=== PATIENT | female | born 1975 | race Caucasian/White ===

== ENCOUNTER 2018-06-01 17:58 | Emergency (ER) | payer MEDICARE, MEDICAID ==
[~2018-06-01] VITALS: Ht 157.5 cm; Wt 63.5 kg
[2018-06-01] MEDS: HYDROcodone/APAP 5/325MG 1 TAB TABLET PO ONE (19:03)
[2018-06-01] MEDS: CYCLOBENZAPRINE 10 MG TABLET. PO ONE (19:03)
--- NOTE | 2018-06-01 20:30 | RAD ---
CT lumbar spine, CT thoracic spine without contrast. HISTORY: Back pain, fall on ice Thoracic spine Axial CT images were obtained through the thoracic spine. A fracture is not identified. Visualized portions of the lungs are clear. There is no focal disc protrusion. This spaces are normal in height. IMPRESSION: 1. No fracture noted in the thoracic spine. Lumbar spine Axial CT images were obtained to the lumbar spine. Sagittal and coronal reconstructed images were reviewed. An acute fracture is not identified. The patient had previous laminectomy and fusion in the lower lumbar spine. There are artifacts off the pedicle screws which limit evaluation. There is fusion of the lower 2 lumbar vertebra to the sacrum. Pedicle screws are in good position. There is no abnormal subluxation. There is no focal disc protrusion in the upper lumbar spine. There is transitional anatomy at the thoracolumbar lumbar junction. There appears to be bony fusion at the between the 2 lumbar vertebra but not at the lumbosacral junction. IMPRESSION: 1. Previous lower lumbar fusion. 2. No acute fracture. 3. No abnormal subluxation. PQRS Compliance Statement: One or more of the following individualized dose reduction techniques were utilized for this examination: 1. Automated exposure control 2. Adjustment of the mA and/or kV according to patient size 3. Use of iterative reconstruction technique Electronically signed by: Arturo Daly MD (06/01/2018 8:26 PM) [facility]
--- NOTE | 2018-06-01 20:33 | RAD ---
CT cervical spine without contrast. HISTORY: Fall on ice, neck pain Axial CT images were obtained to the cervical spine. Sagittal and coronal reconstructed images were reviewed. A fracture is not identified. C-spine is in normal alignment. A disc protrusion is not identified. Thyroid is homogeneous. Disc spaces are normal in height. There is minimal facet arthritis. IMPRESSION: 1. No acute fracture noted PQRS Compliance Statement: One or more of the following individualized dose reduction techniques were utilized for this examination: 1. Automated exposure control 2. Adjustment of the mA and/or kV according to patient size 3. Use of iterative reconstruction technique Electronically signed by: Arturo Daly MD (06/01/2018 8:28 PM) [facility]
--- NOTE | 2018-06-01 20:37 | RAD ---
CT maxillofacial without contrast. HISTORY: Fall on ice, right jaw pain and swelling Axial CT images were obtained through the facial bones. A mandible fracture is not identified. There are fluid levels in the maxillary sinuses. Ethmoid and frontal sinuses are clear as are the sphenoid sinuses. An orbital fracture is not identified. A facial fracture is not identified. Nasal bone appears intact. IMPRESSION: 1. Fluid levels in the maxillary sinuses. 2. No facial fracture noted. 3. Mandible appears intact. PQRS Compliance Statement: One or more of the following individualized dose reduction techniques were utilized for this examination: 1. Automated exposure control 2. Adjustment of the mA and/or kV according to patient size 3. Use of iterative reconstruction technique Electronically signed by: Arturo Daly MD (06/01/2018 8:32 PM) [facility]
--- NOTE | 2018-06-01 20:39 | RAD ---
Right elbow 3 views, right humerus 2 views. HISTORY: Fell, pain Right elbow 3 views the right elbow show no evidence of an acute fracture or osseous abnormality. The fat pads at the elbow are not displaced. Right humerus 2 views the right humerus show no fracture or acute osseous abnormality. IMPRESSION: 1. No fracture noted in the right humerus. 2. No fracture of the right elbow. Electronically signed by: Arturo Daly MD (06/01/2018 8:34 PM) [facility]
--- NOTE | 2018-06-01 20:39 | RAD ---
Right elbow 3 views, right humerus 2 views. HISTORY: Fell, pain Right elbow 3 views the right elbow show no evidence of an acute fracture or osseous abnormality. The fat pads at the elbow are not displaced. Right humerus 2 views the right humerus show no fracture or acute osseous abnormality. IMPRESSION: 1. No fracture noted in the right humerus. 2. No fracture of the right elbow. Electronically signed by: Arturo Daly MD (06/01/2018 8:34 PM) [facility]
[2018-06-01 21:15] VITALS: BP 145/85
--- NOTE | 2018-06-01 21:19 | PHYS DOC ---
Past Medical History Past Medical History: GERD, Other Additional Past Medical Histor: CHRONIC BACK PAIN Past Surgical History: Hysterectomy, Tonsillectomy, Other Additional Past Surgical Histo: BACK SURG X 3, L ANKLE Additional Information: 1 PPD Alcohol Use: Rarely Drug Use: None Adult General Chief Complaint Chief Complaint: MECHANICAL FALL HPI HPI Patient is a 42 year old female who presents to the ED today complaining of 8 out of 10 pain after falling yesterday in her house deck stairs. Patient denies any loss of consciousness when she fell. Denies any chance she hit her head. She states she is from [facility] and could not be evaluated in [place] yesterday because the roads were bad. I asked patient why she didn't call 911, she states she used to do that and did not want to do it any more in relation to using 911. I also asked patient how she ended up at [facility] considering she comes from [facility]. She is in the ED with a significant other, who states "this is what we do" in terms of coming to a [facility] with both smiling. She also states she would not have been given any pain medicines in the [facility] yesterday. I asked her why they could not give her any pain medicine she did not have any answer. Patient is complaining of a bruise to her right cheek, low back pain, right femur pain, right humerus pain. Review of Systems Review of Systems Constitutional: Denies fever or chills [] Eyes: Denies change in visual acuity, redness, or eye pain [] HENT: Reports bruising to the chin. Denies nasal congestion or sore throat [] Respiratory: Denies cough or shortness of breath [] Cardiovascular: No additional information not addressed in HPI [] GI: Denies abdominal pain, nausea, vomiting, bloody stools or diarrhea [] : Denies dysuria or hematuria [] Musculoskeletal: Reports low back pain, right femur pain, right wrist pain Integument: Denies rash or skin lesions [] Neurologic: Denies headache, focal weakness or sensory changes [] All other systems were reviewed and found to be within normal limits, except as documented in this note. Current Medications Current Medications Current Medications Medications (Trade) Dose Ordered Sig/Camacho Start Time Stop Time Status Last Admin Dose Admin Acetaminophen/ Hydrocodone Bitart (Lortab 5/325) 2 tab 1X ONCE 06/01/18 19:00 06/01/18 19:01 DC 06/01/18 19:03 2 TAB Cyclobenzaprine HCl (Flexeril) 10 mg 1X ONCE 06/01/18 19:00 06/01/18 19:01 DC 06/01/18 19:03 10 MG Allergies Allergies Allergies Coded Allergies Type Severity Reaction Last Updated Verified No Known Drug Allergies 06/01/18 No Physical Exam Physical Exam Constitutional: Well developed, well nourished, no acute distress, non-toxic appearance. [] HENT: 1 tiny bruise noted on the right cheek. Normocephalic, bilateral external ears normal, oropharynx moist, no oral exudates, nose normal. [] Eyes: PERRLA, EOMI, conjunctiva normal, no discharge. [] Neck: Normal range of motion, no tenderness, supple, no stridor. [] Cardiovascular:Heart rate regular rhythm, no murmur [] Lungs & Thorax: Bilateral breath sounds clear to auscultation [] Abdomen: Bowel sounds normal, soft, no tenderness, no masses, no pulsatile masses. [] Skin: Warm, dry, no erythema, no rash. [] Back: Multiple bruises noted mid and lumbar spine region diffusely, they appear older than 1 day injury. Diffuse tenderness throughout the thoracic and lumbar spine. Old healed surgical incision noted lumbar spine. No CVA tenderness. [] Extremities: Right lateral thigh with small amount of bruising, right humerus noted for bruising. No cyanosis, no clubbing, ROM intact, no edema. [] Neurologic: Alert and oriented X 3, normal motor function, normal sensory function, no focal deficits noted. Cranial nerves II through XII intact Psychologic: Affect normal, judgement normal, mood normal. [] Current Patient Data Vital Signs Vital Signs Date Time Temp Pulse Resp B/P (MAP) Pulse Ox O2 Delivery O2 Flow Rate FiO2 06/01/18 20:03 16 96 Room Air 06/01/18 18:03 99.1 109 148/103 (118) 99.1 EKG EKG [] Radiology/Procedures Radiology/Procedures [] Course & Med Decision Making Course & Med Decision Making Pertinent Labs and Imaging studies reviewed. (See chart for details) This is a 42-year-old female patient presenting to the ED today to be evaluated for fall she sustained yesterday. Please see history of present illness. CT of the cervical spine, maxillary facial thoracic and lumbar spine are negative for any acute findings. Right humerus x-ray, elbow x-ray, right femur, right hip and pelvic x-rays were negative for any acute findings. Informed by outgoing RN patient was complaining stating this is the worst hospital setting she did not obtain relief of her pain despite getting 2 hydrocodone and Flexeril. Imaging studies are negative. She'll be discharged with prescription for Medrol Dosepak cyclobenzaprine and diclofenac. Instructed to follow-up with her own PCP. Dragon Disclaimer Dragon Disclaimer This electronic medical record was generated, in whole or in part, using a voice recognition dictation system. Departure Departure Impression: Primary Impression: Fall Additional Impressions: Lumbar contusion Back pain Facial contusion Disposition: HOME, SELF-CARE Condition: STABLE Referrals: NO PCP (PCP) follow up with your doctor as soon as you can WES FONG MD follow up in 1 week Patient Instructions: Contusion, [id number], Fall Prevention and Home Safety Additional Instructions: You were evaluated in the emergency room after falling. Your CTs and Xrays were negative for any acute findings. Please follow up with your doctor as soon as you can. Scripts Methylprednisolone (MEDROL) 4 Mg Tab.ds.pk 1 PKG PO UD, #1 PKG Prov: SUKHDEV WELSH [employer]PER[employer] 06/01/18 Cyclobenzaprine Hcl (CYCLOBENZAPRINE HCL) 10 Mg Tablet 1 TAB PO TID, #30 TAB Prov: SUKHDEV WELSH [employer] OPERATOR 06/01/18 Diclofenac Sodium (DICLOFENAC SODIUM) 50 Mg Tablet.dr 1 TAB PO BID, #20 TAB 0 Refills Prov: SUKHDEV WELSH [employer]ING [employer] OPERATOR 06/01/18 Problem Qualifiers Primary Impression: Fall Encounter type: initial encounter Qualified Codes: W19.XXXA - Unspecified fall, initial encounter Additional Impressions: Lumbar contusion Encounter type: initial encounter Qualified Codes: S30.0XXA - Contusion of lower back and pelvis, initial encounter Back pain Back pain location: low back pain Chronicity: acute Back pain laterality: bilateral Sciatica presence: without sciatica Qualified Codes: M54.5 - Low back pain Facial contusion Encounter type: initial encounter Qualified Codes: S00.83XA - Contusion of other part of head, initial encounter SUKHDEV WELSH APRN Jun 01, 2018 21:19
[2018-06-01] MEDS ORDERED: CYCL10TA2 PO (21:37)
[2018-06-01] MEDS ORDERED: DICL50TA4 PO (21:37)
[2018-06-01] MEDS ORDERED: METH4TAB2 PO (21:37)
--- NOTE | 2018-06-01 23:56 | RAD ---
EXAM: 1. Frontal pelvis with two-view right hip. 2. Right femur 2 views. HISTORY: Fall with pelvic and right femoral pain. COMPARISON: None. FINDINGS: There are instrumented anterior and posterior fusion changes from within the lower lumbar spine. No fractures are identified throughout. The joint spaces and alignment of both hips are maintained. The joint spaces and alignment of the right knee appear normal. IMPRESSION: 1. No fracture. Electronically signed by: Raul Rizo MD (06/01/2018 11:51 PM) [facility]
--- NOTE | 2018-06-01 23:56 | RAD ---
EXAM: 1. Frontal pelvis with two-view right hip. 2. Right femur 2 views. HISTORY: Fall with pelvic and right femoral pain. COMPARISON: None. FINDINGS: There are instrumented anterior and posterior fusion changes from within the lower lumbar spine. No fractures are identified throughout. The joint spaces and alignment of both hips are maintained. The joint spaces and alignment of the right knee appear normal. IMPRESSION: 1. No fracture. Electronically signed by: Raul Rizo MD (06/01/2018 11:51 PM) [facility]
== END 2018-06-01 21:45 | disposition home or self-care (01) ==
LOC: EDBD 17:58 → ER 17:58
DX: S30.0XXA Contusion of lower back and pelvis, initial encounter (principal); S00.83XA Contusion of other part of head, initial encounter; S70.11XA Contusion of right thigh, initial encounter; S60.211A Contusion of right wrist, initial encounter; M54.2 Cervicalgia; M54.6 Pain in thoracic spine; G89.29 Other chronic pain; K21.9 Gastro-esophageal reflux disease without esophagitis; F17.200 Nicotine dependence, unspecified, uncomplicated; Z90.710 Acquired absence of both cervix and uterus; Z90.49 Acquired absence of other specified parts of digestive tract; W10.8XXA Fall (on) (from) other stairs and steps, initial encounter; Y93.89 Activity, other specified; Y92.009 Unspecified place in unspecified non-institutional (private) residence as the place of occurrence of the external cause; Y99.8 Other external cause status
CPT/HCPCS: 70486; 72125; 72128; 72131; 73060; 73080; 73502; 73552; 99284-25